=== PATIENT | female | born 1990 | race African-American/Black ===

== ENCOUNTER 2021-02-13 16:11 | Emergency (ER) | payer OTHER ==
[2021-02-13 16:24] VITALS: BP 134/74; PULSE 72; TEMP 98.9; BMI 25.4
[2021-02-13] MEDS ORDERED: SODIUM CHLORIDE 0.9% 500 ML INFUS.BAG IV ONE (16:38)
[2021-02-13] MEDS ORDERED: MECLIZINE HCL 25 MG TABLET (FP) PO ONE (16:38)
[2021-02-13] MEDS ORDERED: ACETAMINOPHEN 1000 MG/100 ML VIAL (NON FORMULARY) IVPB ONE (16:38)
[2021-02-13] MEDS ORDERED: ONDANSETRON 4 MG/2 ML VIAL IVPUSH ONE (16:38)
[2021-02-13] MEDS ORDERED: MECLIZINE HCL 25 MG TABLET (FP) ONE (17:29)
[2021-02-13] MEDS ORDERED: ONDANSETRON 4 MG/2 ML VIAL ONE (17:29)
[2021-02-13] MEDS ORDERED: ACETAMINOPHEN INJECTION 100 ML IVPB ONE (17:29)
[2021-02-13 17:56] LABS: BASO % 0.9 % (0-2.0); EOS % 2.7 % (0-4.5); HEMATOCRIT 37.2 % (32.4-45.2); HEMOGLOBIN 12.7 GM/dL (10.7-15.3); LYMPH % 40.4 % (8-40); MCH 29.9 pg (25.7-33.7); MCHC 34.1 g/dl (32.0-36.0); MEAN CELL VOLUME 87.7 fl (80-96); MEAN PLT VOLUME 7.2 fl (7.5-11.1); MONO % 5.8 % (3.8-10.2); NEUT % 50.2 % (42.8-82.8); PLATELET COUNT 332 10^3/uL (134-434); RBC 4.24 M/mm3 (3.60-5.2); RDW 13.9 % (11.6-15.6); WHITE BLOOD COUNT 6.8 K/mm3 (4.0-10.0)
[2021-02-13 18:07] LABS: CALCIUM 9.1 mg/dL (8.5-10.1)
[2021-02-13 18:08] LABS: ALBUMIN 3.7 g/dl (3.4-5.0)
[2021-02-13 18:11] LABS: CREATININE 0.7 mg/dL (0.55-1.3)
[2021-02-13 18:13] LABS: BILIRUBIN,TOTAL 0.3 mg/dL (0.2-1); TOT PROT 8.3 g/dl (6.4-8.2)
== END 2021-02-13 21:00 | disposition home or self-care (01) ==
LOC: JER 16:11
PROC: 3E033GC Introduction of Other Therapeutic Substance into Peripheral Vein, Percutaneous Approach (ICD-10-PCS; principal; 2021-02-13)
DX: R42 Dizziness and giddiness (principal)
CPT/HCPCS: 36415; 70450-TC; 80053; 84443; 84703; 85025; 99285-25; C9803; J0131; U0003; U0005